=== PATIENT | female | born 1945 | race African-American/Black ===

== ENCOUNTER 2021-09-13 12:42 | Emergency (ER) | payer MEDICARE, OTHER ==
[~2021-09-13] VITALS: Ht 162.6 cm; Wt 68.2 kg
[~2021-09-13 12:42] MED LIST: ALLO100T2 PO; AMLO-257 PO; BIOT1TAB6 PO; CARV25TA32 PO; CARV40CP11 PO; CETI5TAB12 PO; CYAN100099 SQ; DICL100G51 TP; DICY10 PO; ERGO500013 PO; EZET10TA57 PO; FERR1TAB24 PO; GLIM2 PO; HYDR25TA PO; LEVO88TA4 PO; LIRA0.6P SQ; OMEP20 PO; SPIR-37 PO; SPIR25TA6 PO; TRIA10.8 NASAL; TYL3 PO
[2021-09-13] MEDS ORDERED: BIOT800T PO (12:56)
[2021-09-13] MEDS ORDERED: ERGO500054 PO (12:56)
[2021-09-13] MEDS ORDERED: CYAN100056 IM (12:56)
[2021-09-13] MEDS ORDERED: VALA100026 PO (13:00)
[2021-09-13] MEDS ORDERED: DAPA5TAB PO (13:00)
[2021-09-13] MEDS ORDERED: SEMA1PEN3 SQ (13:00)
[2021-09-13] MEDS ORDERED: DICY10CA13 PO (13:00)
[2021-09-13] MEDS ORDERED: LOSA1TAB40 PO (13:00)
[2021-09-13] MEDS ORDERED: ATOR10TA69 PO (13:00)
[2021-09-13] MEDS ORDERED: MIRA25TA PO (13:00)
[2021-09-13] MEDS ORDERED: GABA-529 PO (13:00)
[2021-09-13] MEDS ORDERED: ACETAMINOPHEN 500 MG TABLET PO ONE (13:15)
[2021-09-13 14:32] VITALS: BP 155/72
== END 2021-09-13 15:40 | disposition home or self-care (01) ==
LOC: EMS 12:42
DX: M13.812 Other specified arthritis, left shoulder (principal); E11.9 Type 2 diabetes mellitus without complications; I10 Essential (primary) hypertension; Z90.710 Acquired absence of both cervix and uterus; Z88.0 Allergy status to penicillin; Z91.041 Radiographic dye allergy status
CPT/HCPCS: 81002; 82962; 99283

== ENCOUNTER 2022-02-21 13:03 | Emergency (ER) | payer MEDICARE ==
[~2022-02-21] VITALS: Ht 157.5 cm; Wt 61.4 kg
[~2022-02-21 13:03] MED LIST changes: +ALLO-97 PO; -ALLO100T2 PO; +ATOR10TA69 PO; -BIOT1TAB6 PO; +BIOT800T PO; -CARV25TA32 PO; -CETI5TAB12 PO; +CYAN100056 IM; -CYAN100099 SQ; +DAPA5TAB PO; -DICL100G51 TP; -DICY10 PO; +DICY10CA13 PO; -ERGO500013 PO; +ERGO500054 PO; -EZET10TA57 PO; -FERR1TAB24 PO; +GABA-529 PO; -GLIM2 PO; -HYDR25TA PO; -LIRA0.6P SQ; +LOSA1TAB40 PO; +MIRA25TA PO; +SEMA1PEN3 SQ; -SPIR25TA6 PO; -TYL3 PO; +VALA100026 PO
[2022-02-21] MEDS ORDERED: LEVE500T8 PO (13:20)
[2022-02-21] MEDS ORDERED: DICL100G51 TP (13:28)
[2022-02-21 16:30] VITALS: BP 155/96
[2022-02-21 16:34] LABS: COVID AG,FIA SOURCE NASOPHARYNGEAL
[2022-02-21] MEDS ORDERED: CYAN-11 IM (17:10)
[2022-02-21] MEDS ORDERED: BENZ-70 PO (17:21)
[2022-02-21] MEDS ORDERED: NIRM1TAB PO (18:20)
== END 2022-02-21 17:31 | disposition home or self-care (01) ==
LOC: EMS 13:03
DX: U07.1 COVID-19 (principal); E11.9 Type 2 diabetes mellitus without complications; I10 Essential (primary) hypertension; Z90.710 Acquired absence of both cervix and uterus; Z98.890 Other specified postprocedural states; Z88.0 Allergy status to penicillin; Z91.041 Radiographic dye allergy status
CPT/HCPCS: 99284; 71046; 87426; 82962; C9803

== ENCOUNTER 2022-04-15 16:24 | Emergency (ER) | payer MEDICARE ==
[~2022-04-15] VITALS: Ht 160 cm; Wt 68.6 kg
[~2022-04-15 16:24] MED LIST changes: +BENZ-70 PO; -BIOT800T PO; -CYAN100056 IM; -DAPA5TAB PO; +DICL100G51 TP; -DICY10CA13 PO; +LEVE500T8 PO; -MIRA25TA PO; -TRIA10.8 NASAL; -VALA100026 PO
[2022-04-15] MEDS ORDERED: SODIUM CHLORIDE 0.9% 500 ML IV ONE (18:00)
[2022-04-15 18:07] LABS: BASOPHILS % (AUTO) 0.4 % (0.0-2.0); EOSINOPHILS % (AUTO) 1.4 % (1.0-6.0); HEMATOCRIT 26.3 % (36-46); HEMOGLOBIN 8.3 g/dL (12.0-16.0); LYMPHOCYTES # (AUTO) 1.6 K/uL (1.0-4.8); LYMPHOCYTES % (AUTO) 21.3 % (22.0-44.0); MEAN CORPUSCULAR HEMOGLOBIN 21.2 pg (26.0-34.0); MEAN CORPUSCULAR HGB CONC 31.6 G/dL (31.0-37.0); MEAN CORPUSCULAR VOLUME 67 fL (80-100); MONOCYTES # (AUTO) 0.5 K/uL (0.1-1.0); MONOCYTES % (AUTO) 6.3 % (2.0-9.0); NEUTROPHILS # (AUTO) 5.2 K/uL (1.8-7.7); NEUTROPHILS % (AUTO) 70.6 % (40.0-70.0); PLATELET COUNT (AUTO) 461 K/uL (150-450); RED BLOOD CELL COUNT(AUTO) 3.92 MIL/uL (4.00-5.20); RED CELL DISTRIBUTION WIDTH 16.7 % (11.5-14.5)
[2022-04-15 18:14] LABS: CALCIUM, TOTAL 9.6 mg/dL (8.8-10.5); CREATININE 1.6 mg/dL (0.60-1.30); POTASSIUM 4.1 mmol/L (3.5-5.1)
[2022-04-15 18:20] LABS: ALBUMIN 3.3 g/dL (3.4-5.0); BILIRUBIN,TOTAL 0.2 mg/dL (0.1-1.0); TOTAL PROTEIN, SERUM 7.5 g/dL (6.4-8.2)
[2022-04-15 20:56] VITALS: BP 135/82
[2022-04-15 20:59] LABS: APPEARANCE,URINE CLEAR (CLEAR); BILIRUBIN,URINE NEGATIVE (NEGATIVE); GLUCOSE, URINE (UA) NEGATIVE (NEGATIVE); KETONES,URINE NEGATIVE (NEGATIVE); LEUKOCYTE ESTERASE ,URINE SMALL (NEGATIVE); NITRATE,URINE NEGATIVE (NEGATIVE); OCCULT BLOOD,URINE NEGATIVE (NEGATIVE); PROTEIN,URINE TRACE mg/dL (NEGATIVE); SPECIFIC GRAVITIY, URINE 1.013 (1.003-1.030); UROBILINOGEN,URINE <=1.0 mg/dL (<=1.0)
[2022-04-15 21:06] LABS: BACTERIA,URINE Rare /HPF (None Seen); RBC,URINE 0-2 /HPF (0-2); SQUAMOUS EPITHELIAL CELL,UR Few /LPF (None Seen)
== END 2022-04-15 21:28 | disposition home or self-care (01) ==
LOC: EMS 16:26
DX: E86.0 Dehydration (principal); E11.65 Type 2 diabetes mellitus with hyperglycemia; I10 Essential (primary) hypertension; Z88.0 Allergy status to penicillin; Z90.710 Acquired absence of both cervix and uterus; Z96.653 Presence of artificial knee joint, bilateral
CPT/HCPCS: 99283; 80053; 81001; 82962; 85025; 36415; 87086; J7040; 87186